=== PATIENT | female | born 1945 | race American Indian/Alaskan Native ===

== ENCOUNTER 2018-11-25 08:26 | Day surgery (SDC) | payer OTHER, MEDICARE ==
--- OUTSIDE RECORDS SUMMARY | 2018-11-25 08:39 | XMS REPORT | Clinical Summary ---
:1945 Author Organization [facility] Address [address] [place] [address] Care Team Providers Name Role Phone Asked, No Pcp Primary Care Provider Unavailable Allergies No Known Allergies Medications Medication Sig Dispensed Refills Start Date End Date Status loratadine (CLARITIN) 10 Take 10 mg by 0 Active mg tablet mouth daily. aspirin (ECOTRIN) 81 MG Take 81 mg by 0 Active enteric coated tablet mouth daily. cetirizine (ZyrTEC) 10 Take 10 mg by 0 Active MG tablet mouth daily. acetaminophen (TYLENOL Take by mouth as 0 Active ORAL) needed. Active Problems Not on file Encounters Date Type Specialty Care Team Description 01/27/2018 Office Visit Neurology Fadia Reynolds, Occipital neuralgia of left side (Primary Dx); DO Neck pain after 11/24/2017 Social History Tobacco Use Types Packs/Day Years Used Date Never Smoker Smokeless Tobacco: Never Used Alcohol Use Drinks/Week oz/Week Comments Yes once a months Sex Assigned at Date Recorded Not on file Job Start Date Occupation Industry Not on file Not on file Not on file Travel History Travel Start Travel End No recent travel history available. Last Filed Vital Signs Vital Sign Reading Time Taken Blood Pressure 122/80 01/27/2018 1:36 PM CDT Pulse 80 01/27/2018 1:36 PM CDT Temperature - - Respiratory Rate - - Oxygen Saturation - - Inhaled Oxygen Concentration - - Weight 70.8 kg (156 lb) 01/27/2018 1:36 PM CDT Height 162.6 cm (5' 4") 01/27/2018 1:36 PM CDT Body Mass Index 26.78 01/27/2018 1:36 PM CDT Plan of Treatment Health Maintenance Due Date Last Done Comments BREAST CANCER SCREENING 1997 COLON CANCER SCREENING 1997 SHINGLES VACCINES (#1) 1997 65+ PNEUMOCOCCAL VACCINE (1 of 2 - PCV13) 2012 PNEUMOCOCCAL POLYSACCHARIDE VACCINE AGE 65 AND OVER 2012 INFLUENZA VACCINE 02/26/2019 Results Not on fileafter 11/24/2017 Insurance Payer Benefit Plan / Group Subscriber ID Type Phone Address MEDICARE MEDICARE PART A AND B xxxxxxxxxx Medicare [place], [place] AARP AARP SUPPLEMENT xxxxxxxxx-xx Commercial Advance Directives Patient has advance care planning documents on file. For more information, please contact:Clint Richter[address] [place] [phone]
[2018-11-25 09:00] LABS: MPV 7.9 fL (7.6-11.3)
[2018-11-25] MEDS ORDERED: Ringers Lactate 1,000 ML IV ONE (09:30)
[2018-11-25 09:31] LABS: Platelet Estimate ADEQ
[2018-11-25] MEDS ORDERED: FENTANYL CITR 100 MCG/2 ML ONE (09:55)
[2018-11-25] MEDS ORDERED: MIDAZOLAM HCL 2 MG/2 ML INJ ONE (09:55)
[2018-11-25] MEDS ORDERED: FLUMAZENIL 0.1 MG/ML (5 mL VIAL) IV ONE (09:56)
[2018-11-25] MEDS ORDERED: NALOXONE 0.4 MG/ML VIAL ONE (09:56)
--- NOTE | 2018-11-25 11:57 | RAD REPORT ---
EXAM DESCRIPTION: US - Liver Biopsy Procedure - 11/25/2018 10:11 am CLINICAL HISTORY: Patient presents for image guided biopsy of the liver to evaluate for primary bili victoria cirrhosis. COMPARISON: No prior imaging at this facility. TECHNIQUE: The ultrasound-guided biopsy procedure, risks and alternatives were discussed with the pedro flores in detail. After answering all questions, both oral and written consent were obtained. Time out procedure was performed. Prior to the procedure IV access and physiologic monitors were placed. Patient had no contraindicated allergy or medication history. IV conscious sedation was provided. Patient was administered 2.0 mill igrams Versed and 100 micrograms fentanyl. Preliminary imaging identified right lateral upper abdomen access site. Skin was prepped and draped i n the usual sterile fashion. Skin and deeper tissues down to the liver capsule anesthetized with 1% l idocaine. Under direct visualization a 17 gauge introducer needle was advanced into the liver parenchyma. An 18 gauge biopsy needle was used and a 2 centimeter core biopsy was obtained during direct sonographic v isualization. A second 2 centimeter long biopsy was obtained through the same introducer needle. All biopsy material was retained for cytology/histology assessment. The introducer needle was removed and direct pressure applied to the puncture site. Immediate and 5 m inutes post biopsy images showed no subcapsular or pericapsular hematoma. Direct pressure was applied to the puncture site for an additional 5 minutes. Again, post biopsy imaging showed no hematoma. Hem ostasis was obtained at the skin site. Patient was placed in a right lateral decubitus position to ap plied direct pressure to the puncture site and biopsy pathway to the liver. Vital signs were stable throughout the procedure. Conscious sedation time was approximately 40 minute s. At the conclusion the patient was alert and responsive to questioning. Patient was transferred [facility] to the same day surgical area for post biopsy monitoring. IMPRESSION: Ultrasound-guided liver biopsy as detailed. Patient tolerated procedure well with no i mmediate complications. Patient was in same-day surgery recovering from the procedure at the time of this dictation. There were 2 core biopsies obtained. All material was given to pathology for histologic assessment.
== END 2018-11-25 14:08 | disposition home or self-care (01) ==
LOC: DS 08:26
PROVIDERS: ATTEND Internal Medicine Gastroenterology
DX: K73.9 Chronic hepatitis, unspecified (principal); K74.3 Primary biliary cirrhosis; R10.84 Generalized abdominal pain; R94.5 Abnormal results of liver function studies
CPT/HCPCS: 36415; 88313 ×2; 85049; 88307; 47000; J2250; J3010; J2310